=== PATIENT | male | born 1995 | race Caucasian/White ===

== ENCOUNTER 2018-06-09 20:00 | Emergency (ER) | payer OTHER ==
--- NOTE | 2018-06-09 20:26 | ER Document Report ---
ED Medical Screen (RME) - General Chief Complaint: Psych Problem Stated Complaint: PSYCH Time Seen by Provider: 06/09/18 20:19 Mode of Arrival: Ambulatory Information source: Patient Notes: 20-year-old male with history of depression presents with complaint of worsening depression, anxiety and thoughts of suicide. Patient admits to increased stress at work and at home. Reports a previous attempt of suicide by jumping off a deck a few years ago. Currently he thinks of piping AT tube from his car exhaust into his window and "going out like that". I have greeted and performed a rapid initial assessment of this patient. A comprehensive ED assessment and evaluation of the patient, analysis of test results and completion of medical decision making process we will be contacted by additional ED providers. PHYSICAL EXAMINATION: Vital signs reviewed-WNL GENERAL: Well-appearing, well-nourished and in no acute distress. LUNGS: No respiratory distress Musculoskeletal: Normal range of motion NEUROLOGICAL: Normal speech, normal gait. PSYCH: Admits to increased depression, anxiety, suicidal ideation SKIN: Warm, Dry, normal turgor, no rashes or lesions noted. TRAVEL OUTSIDE OF THE [place] IN LAST 30 DAYS: No - HPI Onset: Other Quality of pain: No pain Similar symptoms previously: Yes Recently seen / treated by doctor: No - Related Data Allergies/Adverse Reactions: No Known Allergies Allergy (Unverified 06/09/18 20:03) Physical Exam - Vital signs Vitals: Temp Pulse Resp BP Pulse Ox 98.1 F 64 16 111/68 99 06/09/18 20:10 06/09/18 20:10 06/09/18 20:10 06/09/18 20:10 06/09/18 20:10 Course - Vital Signs Vital signs: Temp Pulse Resp BP Pulse Ox 98.1 F 64 16 111/68 99 06/09/18 20:10 06/09/18 20:10 06/09/18 20:10 06/09/18 20:10 06/09/18 20:10
[2018-06-09 20:59] LABS: ABSOLUTE BASOPHILS # (AUTO) 0.1 10^3/uL (0.0-0.2); ABSOLUTE EOSINOPHILS # (AUTO) 0.2 10^3/uL (0.0-0.6); ABSOLUTE LYMPHOCYTES (AUTO) 3.2 10^3/uL (0.5-4.7); ABSOLUTE MONOCYTES (AUTO) 0.7 10^3/uL (0.1-1.4); ABSOLUTE NEUT (AUTO) 4.7 10^3/uL (1.7-8.2); BASOPHILS % (AUTO) 0.6 % (0-2); EOSINOPHILS % (AUTO) 2.2 % (0-6); HEMATOCRIT 43.4 % (37.9-51.0); HEMOGLOBIN 14.9 g/dL (13.5-17.0); LYMPHOCYTES % (AUTO) 36.3 % (13-45); MEAN CORPUSCULAR HEMOGLOBIN 29.4 pg (27.0-33.4); MEAN CORPUSCULAR HGB CONC 34.3 g/dL (32.0-36.0); MEAN CORPUSCULAR VOLUME 86 fl (80-97); MONOCYTES % (AUTO) 8.4 % (3-13); PLATELET COUNT 275 10^3/uL (150-450); RED BLOOD COUNT 5.06 10^6/uL (4.35-5.55); RED CELL DISTRIBUTION WIDTH 13.4 % (11.5-14.0); SEGMENTED NEUTROPHILS % (AUTO) 52.5 % (42-78); TOTAL CELLS COUNTED % (AUTO) 100 %; WHITE BLOOD COUNT 8.9 10^3/uL (4.0-10.5)
[2018-06-09 21:05] LABS: APPEARANCE,URINE SLIGHTLY-CLOUDY; BILIRUBIN,URINE NEGATIVE (NEGATIVE); COLOR,URINE AMBER; GLUCOSE, URINE NEGATIVE (NEGATIVE); KETONES,URINE 20 mg/dL (NEGATIVE); LEUKOCYTE ESTERASE,URINE NEGATIVE (NEGATIVE); NITRITE,URINE NEGATIVE (NEGATIVE); PROTEIN,URINE 30 mg/dL (NEGATIVE); URINE SPECIFIC GRAVITY 1.033
[2018-06-09 21:06] LABS: ALANINE AMINOTRANSFERASE 30 U/L (21-72); ALBUMIN 5.2 g/dL (3.5-5.0); ALKALINE PHOSPHATASE 44 U/L (38-126); ANION GAP 10 (5-19); ASPARTATE AMINO TRANSFERASE 38 U/L (17-59); BILIRUBIN,DIRECT 0.2 mg/dL (0.0-0.4); BILIRUBIN,TOTAL 0.7 mg/dL (0.2-1.3); BLOOD UREA NITROGEN 15 mg/dL (7-20); CALCIUM 9.7 mg/dL (8.4-10.2); CARBON DIOXIDE 30 mmol/L (22-30); CHLORIDE 101 mmol/L (98-107); GLUCOSE 86 mg/dL (75-110); POTASSIUM 3.7 mmol/L (3.6-5.0); SODIUM 141.1 mmol/L (137-145)
[2018-06-09 21:08] LABS: ACETAMINOPHEN < 10 ug/mL (10-30); ALCOHOL < 10 mg/dL (NONE DETECTED); SALICYLATE < 1.0 mg/dL (2.0-20.0)
[2018-06-09 21:17] LABS: URINE AMPHETAMINES SCREEN NEGATIVE; URINE BARBITURATES SCREEN NEGATIVE; URINE BENZODIAZEPINES SCREEN NEGATIVE; URINE COCAINE SCREEN NEGATIVE; URINE MARIJUANA (THC) SCREEN NEGATIVE; URINE METHADONE SCREEN NEGATIVE; URINE PHENCYCLIDINE SCREEN NEGATIVE
--- NOTE | 2018-06-10 02:02 | ER Document Report ---
ED Psych Disorder / Suicide - General Chief Complaint: Psych Problem Stated Complaint: PSYCH Time Seen by Provider: 06/09/18 20:19 Mode of Arrival: Ambulatory Notes: E providers note: 20-year-old male with history of depression presents with complaint of worsening depression, anxiety and thoughts of suicide. Patient admits to increased stress at work and at home. Reports a previous attempt of suicide by jumping off a deck a few years ago. Currently he thinks of piping AT tube from his car exhaust into his window and "going out like that". Patient is very cooperative with myself and staff. States recently his took his child and he feels "like there is a lot going on." Past medical history: Depression Medications: None Allergies: None TRAVEL OUTSIDE OF THE [place] IN LAST 30 DAYS: No - Related Data Allergies/Adverse Reactions: No Known Allergies Allergy (Unverified 06/09/18 20:03) Past Medical History - General Information source: Patient - Social History Smoking Status: Never Smoker Frequency of alcohol use: None Drug Abuse: None Family History: Reviewed & Not Pertinent Patient has suicidal ideation: Yes Patient has homicidal ideation: No Renal/ Medical History: Denies: Hx Peritoneal Dialysis Review of Systems - Review of Systems Constitutional: No symptoms reported EENT: No symptoms reported Cardiovascular: No symptoms reported Respiratory: No symptoms reported Gastrointestinal: No symptoms reported Genitourinary: No symptoms reported Male Genitourinary: No symptoms reported Musculoskeletal: No symptoms reported Skin: No symptoms reported Hematologic/Lymphatic: No symptoms reported Neurological/Psychological: See HPI Physical Exam - Vital signs Vitals: Temp Pulse BP Pulse Ox 98.1 F 63 111/68 98 06/09/18 20:09 06/09/18 20:09 06/09/18 20:09 06/09/18 20:09 - Notes Notes: GENERAL: Alert, interacts well. No acute distress. HEAD: Normocephalic, atraumatic. EYES: Pupils equal, round, and reactive to light. Extraocular movements intact. ENT: Oral mucosa moist, tongue midline. NECK: Full range of motion. Supple. Trachea midline. LUNGS: Clear to auscultation bilaterally, no wheezes, rales, or rhonchi. No respiratory distress. HEART: Regular rate and rhythm. No murmur ABDOMEN: Soft, non-tender. Non-distended. Bowel sounds present in all 4 quadrants. EXTREMITIES: Moves all 4 extremities spontaneously. No edema, normal radial and dorsalis pedis pulses bilaterally. No cyanosis. BACK: no cervical, thoracic, lumbar midline tenderness. No saddle anesthesia, normal distal neurovascular exam. NEUROLOGICAL: Alert and oriented x3. Normal speech. cranial nerves II through XII grossly intact PSYCH: Flat affect, depressed mood. SKIN: Warm, dry, normal turgor. No rashes or lesions noted. Course - Re-evaluation Re-evalutation: 06/10/18 02:02 At this time patient is medically cleared for a psych evaluation. Patient is sleeping in room 46 in no apparent distress. 05/31/18 07:00 Report and pt care given to Cinthya Angel [employer] awaiting psych eval. Pt. still sleeping in NAD. - Vital Signs Vital signs: Temp Pulse Resp BP Pulse Ox 98.3 F 62 16 100/64 98 06/10/18 11:26 06/10/18 11:26 06/10/18 11:26 06/10/18 11:26 06/10/18 11:26 - Laboratory Result Diagrams: 06/09/18 20:40 06/09/18 20:40 Laboratory results interpreted by me: 06/09/18 06/09/18 20:40 20:40 Albumin 5.2 H Urine Protein 30 H Urine Ketones 20 H Urine Urobilinogen 2.0 H Salicylates < 1.0 L Acetaminophen < 10 L Discharge - Discharge Disposition: PSYCH HOSP/UNIT
--- NOTE | 2018-06-10 07:43 | EKG REPORT ---
SEVERITY:- NORMAL ECG - SINUS RHYTHM ST ELEV, PROBABLE NORMAL EARLY REPOL PATTERN : Confirmed by: August Inman MD 10-Jun-2018 07:42:04
--- NOTE | 2018-06-10 08:29 | PSYCHOLOGICAL NOTE ---
Psych Note - Psych Note Date seen by psych provider: 06/10/18 Time seen by psych provider: 07:10 Psych Note: Reason for Consult: Suicidal ideation 20-year-old male with history of depression presents with complaint of worsening depression, anxiety and thoughts of suicide. Patient reports that he arrived to [facility] voluntarily through EMS because he has thoughts of wanting to harm himself. 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 He reports he is also been having family problems because his problems at work has affected his attitude and the way he is at home. 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 He disclosed that he has been asking for 30 years to go to "phase" however "they are constantly on me about picking up on my quals." He discloses that his family life has gotten so bad because he does not want to do anything but sleep and is irritable that his is threatening to divorce him. He reports that he "just does not care anymore. He reports he has a plan of taking a tube from the muffler to his cab because he does not want to go out painfully. He reports that he had had a previous attempt in March 2014 where he was going to jump off the deck of his barracks however he was stopped. He disclosed that during that episode he had 2 family members that and he felt he did not have anyone to talk to. He reports that he was started on medications however stopped taking them because they did not "help they just made me drowsy." He reports he has been to a lot of outpatient therapy and and asked for help from multiple places such as his [facility], [facility] [place], mental health in his unit, and the telephone claims representative. Patient is alert and orientated to person, place, time and circumstance. Mood is dysphoric with flat affect. Patient endorses suicidal ideation with a plan of connecting a tube from his exhaust to the cab of his vehicle. Patient denies homicidal ideation delusions are absent behaviors congruent with an intact reality based presentation i.e. organized and linear thought process. Eye contact is fair. Conversational speech is within normal rate, tone and prosody. Intellectual abilities appear to be within the average range. Attention and concentration are fair. Insight, judgment, impulse control are fair as evidenced by patient voluntarily coming to the hospital. No medication recommendations at this time Diagnosis 311 (F32.9) unspecified depressive disorder Impression\\plan: Patient is recommended to continue under IVC. Patient discloses suicidal ideation with a plan of hooking up a tube from his exhaust to the cab of his car. He disclosed he had a previous attempt in 2013 where he attempted to jump off the balcony from his barracks but was stopped. Patient presents dysphoric with flat affect. He discloses he has been asking for help from his command and multiple other outlets for the last 5 months. 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 Dr. Vega was consulted and the care management of this patient; attending physician is agreement with recommendations and disposition.
--- NOTE | 2018-06-10 09:50 | ER Document Report ---
Doctor's Note Notes: 06/10/18 09:49 Rounds: Chart reviewed and patient interviewed. Patient being evaluated for depression, suicidal ideation, and anxiety. Patient says is been under an extreme amount of stress lately. 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 Patient appears to be medically stable for transfer or discharge. Idania Haley MD 06/10/18 11:35 Patient's transport to the [facility] has arrived and patient is ready to be discharged. Patient's vital signs are all normal. He is ambulatory without difficulty. Stable for transfer. Idania Haley MD
[2018-06-10 11:29] VITALS: BP 100/64
== END 2018-06-10 11:35 ==
LOC: ER 20:00
DX: F32.9 Major depressive disorder, single episode, unspecified (principal); R45.851 Suicidal ideations
CPT/HCPCS: 36415; 80053; 80307; 81001; 85025; 93005; 93010; 99285